=== PATIENT | male | born 1980 | race Two or more races ===

== ENCOUNTER 2018-05-23 02:59 | Emergency (ER) | payer SELFPAY ==
[~2018-05-23] VITALS: Ht 170.2 cm; Wt 104.3 kg
[2018-05-23 03:38] LABS: BASO % 0 % (0-3); EOS # 0.2 x10^3/uL (0.0-0.7); EOS % 3 % (0-3); HEMATOCRIT 44.3 % (39.0-53.0); HEMOGLOBIN 15.7 g/dL (13.0-17.5); LYMPH # 2.2 x10^3/uL (1.0-4.8); LYMPH % 29 % (24-48); MEAN CORPUSCULAR HEMOGLOBIN 32 pg (25-35); MEAN CORPUSCULAR HGB CONC 35 g/dL (31-37); MEAN CORPUSCULAR VOLUME 90 fL (79-100); MONO # 0.6 x10^3/uL (0.0-1.1); MONO % 8 % (0-9); NEUT # 4.4 x10^3uL (1.8-7.7); NEUT % 59 % (31-73); PLATELET COUNT 173 x10^3/uL (140-400); RED BLOOD COUNT 4.93 x10^6/uL (4.30-5.70); RED CELL DISTRIBUTION WIDTH 13.8 % (11.5-14.5); WHITE BLOOD COUNT 7.5 x10^3/uL (4.0-11.0)
[2018-05-23] MEDS ORDERED: ONDANSETRON PF 4 MG/2 ML VIAL. IV ONE (03:45)
[2018-05-23] MEDS ORDERED: FAMOTIDINE 20 MG/2 ML VIAL IVP ONE (03:45)
[2018-05-23] MEDS ORDERED: fentaNYL PF VIAL 100 MCG/2 ML VIAL IV ONE (03:45)
[2018-05-23 04:09] LABS: ALBUMIN 3.4 g/dL (3.4-5.0); CALCIUM 8.9 mg/dL (8.5-10.1); CREATININE 1.1 mg/dL (0.7-1.3); GFR 75.3; POTASSIUM 3.6 mmol/L (3.5-5.1); TOTAL BILIRUBIN 0.4 mg/dL (0.2-1.0); TOTAL PROTEIN 6.8 g/dL (6.4-8.2)
[2018-05-23] MEDS ORDERED: LIDO:MAALOX 1:1 20 ML SINGLE DOSE. SWSW ONE (04:30)
--- NOTE | 2018-05-23 04:35 | PHYS DOC ---
Past Medical History Past Medical History: No Pertinent History Past Surgical History: No Surgical History Alcohol Use: Occasionally Drug Use: None Adult General Chief Complaint Chief Complaint: ABDOMINAL PAIN HPI HPI Patient is a 37 year old [place]-speaking male presents with epigastric burning. Onset was one hour prior to ED arrival. Pain is just rated moderate to severe and radiates to chest. It is associated with nausea and single episode of emesis. Vomit contained stomach contact. No Palpitations, shortness of breath. No bloody stools dark tarry stools. No prior abdominal surgeries. Denies chronic illnesses. Patient is a smoker and drinks only occasional alcohol. Additional history obtained from patient spouse. Translation phone used obtaining history Review of Systems Review of Systems View symptoms as per history of present illness. All other review symptoms are negative. All other systems were reviewed and found to be within normal limits, except as documented in this note. Current Medications Current Medications Current Medications Medications (Trade) Dose Ordered Sig/Adina Start Time Stop Time Status Last Admin Dose Admin Famotidine (Pepcid Vial) 20 mg 1X ONCE 05/23/18 03:45 05/23/18 03:46 DC 05/23/18 03:59 20 MG Fentanyl Citrate (Fentanyl 2ml Vial) 75 mcg 1X ONCE 05/23/18 03:45 05/23/18 03:46 DC 05/23/18 03:59 75 MCG Info (CONTRAST GIVEN -- Rx MONITORING) 1 each PRN DAILY PRN 05/23/18 05:15 05/25/18 05:14 Iohexol (Omnipaque 300 Mg/ml) 75 ml 1X ONCE 05/23/18 05:15 05/23/18 05:16 DC 05/23/18 05:31 75 ML Morphine Sulfate (Morphine Sulfate) 4 mg 1X ONCE 05/23/18 05:00 05/23/18 05:01 DC 05/23/18 05:09 4 MG Multi-Ingredient Mouthwash/Gargle (Gi Cocktail) 20 ml 1X ONCE 05/23/18 04:30 05/23/18 04:52 DC 05/23/18 04:33 20 ML Ondansetron HCl (Zofran) 4 mg 1X ONCE 05/23/18 03:45 05/23/18 03:46 DC 05/23/18 03:59 4 MG Allergies Allergies Allergies Coded Allergies Type Severity Reaction Last Updated Verified No Known Drug Allergies 05/23/18 No Physical Exam Physical Exam Constitutional: Well developed, well nourished, no acute distress, non-toxic appearance. [] HENT: Normocephalic, atraumatic, bilateral external ears normal, oropharynx moist, no oral exudates, nose normal. [] Eyes: PERRLA, EOMI, conjunctiva normal, no discharge. [] Neck: Normal range of motion, no tenderness, supple, no stridor. [] Cardiovascular:Heart rate regular rhythm, no murmur [] Lungs & Thorax: Bilateral breath sounds clear to auscultation [] Abdomen: Bowel sounds normal, soft, diffuse epigastric pain, tenderness, no masses, no pulsatile masses. [] Skin: Warm, dry, no erythema, no rash. [] Back: No tenderness, no CVA tenderness. [] Extremities: No tenderness, no cyanosis, no clubbing, ROM intact, no edema. [] Neurologic: Alert and oriented X 3, normal motor function, normal sensory function, no focal deficits noted. [] Psychologic: Affect normal, judgement normal, mood normal. [] Current Patient Data Vital Signs Vital Signs Date Time Temp Pulse Resp B/P (MAP) Pulse Ox O2 Delivery O2 Flow Rate FiO2 05/23/18 05:09 99 Room Air 05/23/18 03:15 97.6 54 18 145/80 (101) 97.6 Lab Values Laboratory Tests Test 05/23/18 03:25 White Blood Count 7.5 x10^3/uL (4.0-11.0) Red Blood Count 4.93 x10^6/uL (4.30-5.70) Hemoglobin 15.7 g/dL (13.0-17.5) Hematocrit 44.3 % (39.0-53.0) Mean Corpuscular Volume 90 fL (79-100) Mean Corpuscular Hemoglobin 32 pg (25-35) Mean Corpuscular Hemoglobin Concent 35 g/dL (31-37) Red Cell Distribution Width 13.8 % (11.5-14.5) Platelet Count 173 x10^3/uL (140-400) Neutrophils (%) (Auto) 59 % (31-73) Lymphocytes (%) (Auto) 29 % (24-48) Monocytes (%) (Auto) 8 % (0-9) Eosinophils (%) (Auto) 3 % (0-3) Basophils (%) (Auto) 0 % (0-3) Neutrophils # (Auto) 4.4 x10^3uL (1.8-7.7) Lymphocytes # (Auto) 2.2 x10^3/uL (1.0-4.8) Monocytes # (Auto) 0.6 x10^3/uL (0.0-1.1) Eosinophils # (Auto) 0.2 x10^3/uL (0.0-0.7) Basophils # (Auto) 0.0 x10^3/uL (0.0-0.2) Sodium Level 144 mmol/L (136-145) Potassium Level 3.6 mmol/L (3.5-5.1) Chloride Level 105 mmol/L (98-107) Carbon Dioxide Level 30 mmol/L (21-32) Anion Gap 9 (6-14) Blood Urea Nitrogen 9 mg/dL (8-26) Creatinine 1.1 mg/dL (0.7-1.3) Estimated GFR (Cockcroft-Gault) 75.3 BUN/Creatinine Ratio 8 (6-20) Glucose Level 119 mg/dL (70-99) H Calcium Level 8.9 mg/dL (8.5-10.1) Total Bilirubin 0.4 mg/dL (0.2-1.0) Aspartate Amino Transferase (AST) 15 U/L (15-37) Alanine Aminotransferase (ALT) 30 U/L (16-63) Alkaline Phosphatase 67 U/L (46-116) Total Protein 6.8 g/dL (6.4-8.2) Albumin 3.4 g/dL (3.4-5.0) Albumin/Globulin Ratio 1.0 (1.0-1.7) Lipase 151 U/L (73-393) Laboratory Tests 05/23/18 03:25 Laboratory Tests 05/23/18 03:25 EKG EKG [EKG: Reviewed] Radiology/Procedures Radiology/Procedures [CT abdomen pelvis: No acute findings other than gallbladder distention per radiology report] Course & Med Decision Making Course & Med Decision Making Pertinent Labs and Imaging studies reviewed. (See chart for details) [Patient with epigastric pain Tenderness with Distended Gallbladder on CT abdomen pelvis. Lab work otherwise normal. Symptoms improved with treatment recommend supportive care with PCP follow-up. Return precautions reviewed. Patient verbalizes understanding and agreement discharge instructions prior to departure.] Dragon Disclaimer Dragon Disclaimer This electronic medical record was generated, in whole or in part, using a voice recognition dictation system. Departure Departure Impression: Primary Impression: Abdominal pain Additional Impression: Gall bladder pain Disposition: HOME, SELF-CARE Condition: GOOD Referrals: NO PCP (PCP) Patient Instructions: Abdominal Migraine, Biliary Colic Additional Instructions: You were evaluated in the emergency department for upper abdominal pain. Lab work and CT imaging studies formal and are nondiagnostic with exception of a distended gallbladder which may be the cause of your symptoms. Please go home and rest. Take pain and nausea medication as directed. Drink clear liquids only for the next 6-12 hours then gradually increase to bland diet as tolerated. Avoid any and starchy foods and follow-up with your PCP. Return to the ED if new or worsening symptoms. Scripts Ondansetron Hcl (ZOFRAN) 4 Mg Tablet 1 TAB PO Q6HRS PRN for NAUSEA, #10 TAB 0 Refills Prov: LUL CAZARES DO 05/23/18 Hydrocodone/Acetaminophen (Hydrocodone-Acetamin 5-325 mg) 1 Each Tablet 1 EACH PO Q6HRS PRN for PAIN, #10 TAB Prov: LUL CAZARES DO 05/23/18 Problem Qualifiers LUL CAZARES DO May 23, 2018 04:35
[2018-05-23] MEDS ORDERED: MORPHINE SULFATE 4 MG/ML VIAL. IV ONE (05:00)
[2018-05-23] MEDS ORDERED: IOHEXOL 300 MG/ML 100ML VIAL. IV ONE (05:15)
[2018-05-23] MEDS ORDERED: CONTRAST GIVEN. MC PRN (05:15)
--- NOTE | 2018-05-23 05:34 | RAD ---
CT abdomen and pelvis with contrast. HISTORY: Abdominal pain CT scan of the abdomen and pelvis was done using 75 mL Omnipaque 300 contrast. Lung bases are clear. There is no effusion. A liver lesion is not identified. Gallbladder is mildly distended without a calcified gallstone or gallbladder wall thickening. Spleen and adrenal glands are normal. Pancreas is normal. There is no mass or hydronephrosis in the kidneys. There is no adenopathy. There is no free air or ascites. Appendix is normal. There is not evidence of a diverticulitis. IMPRESSION: 1. Mild distention the gallbladder. 2. Normal appendix. 3. No bowel obstruction or other acute finding in the abdomen or pelvis. Electronically signed by: Uli Xavier MD (05/23/2018 5:29 AM) [id number]
[2018-05-23 05:38] VITALS: BP 139/84
[2018-05-23] MEDS ORDERED: ONDA4TAB7 PO (05:40)
[2018-05-23] MEDS ORDERED: HYDR-2759 PO (05:40)
--- NOTE | 2018-05-23 06:49 | EKG ---
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
== END 2018-05-23 06:00 | disposition home or self-care (01) ==
LOC: ER 02:59
DX: K82.8 Other specified diseases of gallbladder (principal); R10.13 Epigastric pain; R11.2 Nausea with vomiting, unspecified
CPT/HCPCS: 36415; 74177; 80053; 83690; 85025; 93005; 96374; 96375; 99284; J2270; J2405; J3010; J3490; Q9967